=== PATIENT | female | born 1995 | race Caucasian/White ===

== ENCOUNTER 2019-02-13 16:24 | Emergency (ER) | payer MEDICAID ==
--- NOTE | 2019-02-13 17:06 | EDM.PDOC ---
ED HPI GENERAL MEDICAL PROBLEM - General Chief Complaint: Respiratory Problem Stated Complaint: CHEST DISCOMFORT Time Seen by Provider: 02/13/19 16:25 Source of Information: Reports: Patient History Limitations: Reports: No Limitations - History of Present Illness INITIAL COMMENTS - FREE TEXT/NARRATIVE: HISTORY AND PHYSICAL: History of present illness: Patient is a 23-year-old female presents to the ED today with concern of palpitations. Patient states she is approximately 15 weeks gestation. Patient states she's been having the palpitations for approximately 4-5 weeks but just started getting anxious about them today so came in to be evaluated. Patient states she has episodes of about 1-2 seconds where she feels her heart "fluttering" and gets a little bit lightheaded which resolves after a second. Patient was seen a few days ago by her COAT FITTER and states that she did not let her know about these symptoms at that time. Patient states she has a few episodes a day. Patient denies any abdominal pain or vaginal bleeding. Patient denies any other symptoms or concerns at this time. Patient denies fever, chills, chest pain, shortness of breath, or cough. Denies headache, neck stiff ness, change in vision, syncope, or near syncope. Denies nausea, vomiting, abdominal pain, diarrhea, constipation, or dysuria. Has not noted any blood in urine or stool. Patient has been eating and drinking appropriately. Review of systems: As per history of present illness and below otherwise all systems reviewed and negative. Past medical history: As per history of present illness and as reviewed below otherwise noncontributory. Surgical history: As per history of present illness and as reviewed below otherwise noncontributory. Social history: See social history for further information Family history: As per history of present illness and as reviewed below otherwise noncontributory. Physical exam: General: Patient is alert, oriented, and in no acute distress. Patient sitting comfortably on exam table. HEENT: Atraumatic, normocephalic, pupils equal and reactive bilaterally, negative for conjunctival pallor or scleral icterus, mucous membranes moist, TMs normal bilaterally, throat clear, neck supple, nontender, trachea midline. No drooling or trismus noted. No meningeal signs. No hot potato voice noted. Lungs: Clear to auscultation, breath sounds equal bilaterally, chest nontender. Heart: S1S2, regular rate and rhythm without overt murmur. No displaced PMI. Abdomen: Soft, nondistended, nontender. Negative for masses or hepatosplenomegaly. Negative for costovertebral tenderness. Pelvis: Stable nontender. Genitourinary: Deferred. Rectal: Deferred. Skin: Intact, warm, dry. No lesions or rashes noted. Extremities: Atraumatic, negative for cords or calf pain. Neurovascular unremarkable. Neuro: Awake, alert, oriented. Cranial nerves II through XII unremarkable. Cerebellum unremarkable. Motor and sensory unremarkable throughout. Exam nonfocal. Notes: FHT 152 at bedside. Discussed the importance for follow-up with her COAT FITTER Voices understanding and is agreeable to plan of care. Denies any further questions or concerns at this time. Diagnostics: EKG, CBC, CMP, UA, urine hCG, Troponin, TSH Discussed with patient risk, limitations, vs benefit of CXR, expresses understanding and declines imaging. Therapeutics: None Prescription: None Impression: Palpitations, unspecified Plan: 1. You can use Tylenol as directed for pain and discomfort. This is safe to use in . 2. Follow-up with your COAT FITTER as discussed and as scheduled. Return to the ED as needed and as discussed. Definitive disposition and diagnosis as appropriate pending reevaluation and review of above. - Related Data Allergies Allergy/AdvReac Type Severity Reaction Status Date / Time No Known Allergies Allergy Verified 02/13/19 16:42 Home Meds: Home Meds Pnv No.95/Ferrous Fum/Folic AC [ Multivitamin Tablet] 1 each PO DAILY [History] Sertraline [Zoloft] 25 mg PO DAILY 02/13/19 [History] Past Medical History - Past Health History Medical/Surgical History: Denies Medical/Surgical History - Infectious Disease History Infectious Disease History: Reports: Chicken Pox Social & Family History - Family History Family Medical History: Noncontributory - Tobacco Use Smoking Status *Q: Never Smoker - Caffeine Use Caffeine Use: Reports: Coffee - Recreational Drug Use Recreational Drug Use: No ED ROS GENERAL - Review of Systems Review Of Systems: ROS reveals no pertinent complaints other than HPI. ED EXAM, GENERAL - Physical Exam Exam: See Below (see dictation) Course - Vital Signs Last Recorded V/S: Last Vital Signs Temp 36.4 C 02/13/19 16:47 Pulse 86 02/13/19 17:50 Resp 16 02/13/19 16:47 BP 113/59 L 02/13/19 16:47 Pulse Ox 97 02/13/19 17:50 - Orders/Labs/Meds Orders: Active Orders 24 hr Category Date Time Status EKG Documentation Completion [RC] STAT Care 02/13/19 16:45 Active CULTURE URINE [RM] Stat Lab 02/13/19 17:05 Received Labs: Laboratory Tests 02/13/19 02/13/19 02/13/19 Range/Units 17:05 17:05 17:13 WBC 7.92 (4.0-11.0) K/uL RBC 3.66 L (4.30-5.90) M/uL Hgb 11.2 L (12.0-16.0) g/dL Hct 33.8 L (36.0-46.0) % MCV 92.3 (80.0-98.0) fL MCH 30.6 (27.0-32.0) pg MCHC 33.1 (31.0-37.0) g/dL RDW Std Deviation 45.1 (28.0-62.0) fl RDW Coeff of Keaton 13 (11.0-15.0) % Plt Count 194 (150-400) K/uL MPV 9.20 (7.40-12.00) fL Neut % (Auto) 65.0 (48.0-80.0) % Lymph % (Auto) 24.4 (16.0-40.0) % [place] % (Auto) 7.3 (0.0-15.0) % Eos % (Auto) 3.0 (0.0-7.0) % Baso % (Auto) 0.3 (0.0-1.5) % Neut # (Auto) 5.2 (1.4-5.7) K/uL Lymph # (Auto) 1.9 (0.6-2.4) K/uL [place] # (Auto) 0.6 (0.0-0.8) K/uL Eos # (Auto) 0.2 (0.0-0.7) K/uL Baso # (Auto) 0.0 (0.0-0.1) K/uL Nucleated RBC % 0.0 /100WBC Nucleated RBCs # 0 K/uL Sodium (136-145) mmol/L Potassium (3.5-5.1) mmol/L Chloride (98-107) mmol/L Carbon Dioxide (21.0-32.0) mmol/L BUN (7.0-18.0) mg/dL Creatinine (0.6-1.0) mg/dL Est Cr Clr Drug Dosing mL/min Estimated GFR (MDRD) ml/min Glucose (74-106) mg/dL Calcium (8.5-10.1) mg/dL Total Bilirubin (0.2-1.0) mg/dL AST (15-37) IU/L ALT (14-63) IU/L Alkaline Phosphatase (46-116) U/L Troponin I (0.000-0.056) ng/mL Total Protein (6.4-8.2) g/dL Albumin (3.4-5.0) g/dL Globulin (2.6-4.0) g/dL Albumin/Globulin Ratio (0.9-1.6) TSH 3rd Generation (0.36-3.74) uIU/mL Urine Color YELLOW Urine Appearance SLT CLOUDY Urine pH 6.0 (5.0-8.0) Ur Specific [place] 1.025 (1.001-1.035) Urine Protein NEGATIVE (NEGATIVE) mg/dL Urine Glucose (UA) NEGATIVE (NEGATIVE) mg/dL Urine Ketones NEGATIVE (NEGATIVE) mg/dL Urine Occult Blood NEGATIVE (NEGATIVE) Urine Nitrite NEGATIVE (NEGATIVE) Urine Bilirubin NEGATIVE (NEGATIVE) Urine Urobilinogen 0.2 (<2.0) EU/dL Ur Leukocyte Esterase TRACE H (NEGATIVE) Urine RBC 0-1 (0-2/HPF) Urine WBC 0-3 (0-5/HPF) Ur Epithelial Cells FEW (NONE-FEW) Urine Bacteria RARE (NEGATIVE) Urine HCG, Qual POSITIVE (NEGATIVE) 02/13/19 02/13/19 Range/Units 17:13 17:13 WBC (4.0-11.0) K/uL RBC (4.30-5.90) M/uL Hgb (12.0-16.0) g/dL Hct (36.0-46.0) % MCV (80.0-98.0) fL MCH (27.0-32.0) pg MCHC (31.0-37.0) g/dL RDW Std Deviation (28.0-62.0) fl RDW Coeff of Keaton (11.0-15.0) % Plt Count (150-400) K/uL MPV (7.40-12.00) fL Neut % (Auto) (48.0-80.0) % Lymph % (Auto) (16.0-40.0) % [place] % (Auto) (0.0-15.0) % Eos % (Auto) (0.0-7.0) % Baso % (Auto) (0.0-1.5) % Neut # (Auto) (1.4-5.7) K/uL Lymph # (Auto) (0.6-2.4) K/uL [place] # (Auto) (0.0-0.8) K/uL Eos # (Auto) (0.0-0.7) K/uL Baso # (Auto) (0.0-0.1) K/uL Nucleated RBC % /100WBC Nucleated RBCs # K/uL Sodium 138 (136-145) mmol/L Potassium 3.7 (3.5-5.1) mmol/L Chloride 106 (98-107) mmol/L Carbon Dioxide 23.6 (21.0-32.0) mmol/L BUN 6 L (7.0-18.0) mg/dL Creatinine 0.5 L (0.6-1.0) mg/dL Est Cr Clr Drug Dosing 167.26 mL/min Estimated GFR (MDRD) > 60.0 ml/min Glucose 72 L (74-106) mg/dL Calcium 8.7 (8.5-10.1) mg/dL Total Bilirubin 0.2 (0.2-1.0) mg/dL AST 15 (15-37) IU/L ALT 24 (14-63) IU/L Alkaline Phosphatase 39 L (46-116) U/L Troponin I < 0.050 (0.000-0.056) ng/mL Total Protein 6.3 L (6.4-8.2) g/dL Albumin 2.9 L (3.4-5.0) g/dL Globulin 3.4 (2.6-4.0) g/dL Albumin/Globulin Ratio 0.9 (0.9-1.6) TSH 3rd Generation 1.47 (0.36-3.74) uIU/mL Urine Color Urine Appearance Urine pH (5.0-8.0) Ur Specific [place] (1.001-1.035) Urine Protein (NEGATIVE) mg/dL Urine Glucose (UA) (NEGATIVE) mg/dL Urine Ketones (NEGATIVE) mg/dL Urine Occult Blood (NEGATIVE) Urine Nitrite (NEGATIVE) Urine Bilirubin (NEGATIVE) Urine Urobilinogen (<2.0) EU/dL Ur Leukocyte Esterase (NEGATIVE) Urine RBC (0-2/HPF) Urine WBC (0-5/HPF) Ur Epithelial Cells (NONE-FEW) Urine Bacteria (NEGATIVE) Urine HCG, Qual (NEGATIVE) Departure - Departure Time of Disposition: 18:03 Disposition: Home, Self-Care 01 Clinical Impression: Palpitations Qualifiers: Weeks of gestation: unspecified Qualified Code(s): Z34.90 - Encounter for supervision of normal , unspecified, unspecified trimester - Discharge Information Referrals: PCP,Unknown [Primary Care Provider] - Forms: ED Department Discharge Additional Instructions: The following information is given to patients seen in the emergency department who are being discharged to home. This information is to outline your options for follow-up care. We provide all patients seen in our emergency department with a follow-up referral. The need for follow-up, as well as the timing and circumstances, are variable depending upon the specifics of your emergency department visit. If you don't have a primary care physician on staff, we will provide you with a referral. We always advise you to contact your personal physician following an emergency department visit to inform them of the circumstance of the visit and for follow-up with them and/or the need for any referrals to a consulting specialist. The emergency department will also refer you to a specialist when appropriate. This referral assures that you have the opportunity for follow-up care with a specialist. All of these measure are taken in an effort to provide you with optimal care, which includes your follow-up. Under all circumstances we always encourage you to contact your private physician who remains a resource for coordinating your care. When calling for follow-up care, please make the office aware that this follow-up is from your recent emergency room visit. If for any reason you are refused follow-up, please contact the [facility] Emergency Department at and asked to speak to the emergency department charge nurse. JOVANA [facility] [address] [place] [address] [facility] [address] [place] [address] [facility] [address] [place] [address] 1. You can use Tylenol as directed for pain and discomfort. This is safe to use in . 2. Follow-up with your COAT FITTER as discussed and as scheduled. Return to the ED as needed and as discussed. - My Orders Last 24 Hours: My Active Orders 02/13/19 16:45 EKG Documentation Completion [RC] STAT 02/13/19 17:05 CULTURE URINE [RM] Stat - Assessment/Plan Last 24 Hours: My Active Orders 02/13/19 16:45 EKG Documentation Completion [RC] STAT 02/13/19 17:05 CULTURE URINE [RM] Stat
[2019-02-13 17:44] LABS: CHLORIDE,CL 106 mmol/L (98-107); SODIUM,NA 138 mmol/L (136-145)
== END 2019-02-13 18:20 | disposition home or self-care (01) ==
LOC: MW.ED 16:24
DX: O99.89 Other specified diseases and conditions complicating pregnancy, childbirth and the puerperium (principal); R00.2 Palpitations; Z3A.15 15 weeks gestation of pregnancy; Z79.899 Other long term (current) drug therapy
CPT/HCPCS: 36415; 80053; 81001; 81025; 84443; 84484; 85025; 87086; 93005; 99283; 99285-25

== ENCOUNTER 2019-08-04 05:11 | Inpatient (IN) | payer MEDICAID ==
[2019-08-04] MEDS ORDERED: Sodium Chloride 0.9% 2.5 ML Syringe FLUSH PRN (07:42)
[2019-08-04] MEDS ORDERED: Methylergonovine 0.2 MG/1 ML Amp IM PRN (07:42)
[2019-08-04] MEDS ORDERED: Misoprostol 200 MCG Tab PO PRN (07:42)
[2019-08-04] MEDS ORDERED: Carboprost Tromethamine 250 MCG/1 ML Amp IM PRN (07:42)
[2019-08-04] MEDS ORDERED: Water For Irrigation,Sterile 1,000 ML Container IRR PRN (07:42)
[2019-08-04] MEDS ORDERED: Lidocaine 1% 50 ML MDV INJECT PRN (07:42)
[2019-08-04] MEDS ORDERED: Sodium Chloride 0.9% 10 ML SDV IV PRN (07:42)
[2019-08-04] MEDS ORDERED: Sodium Chloride 0.9% 10 ML Syringe FLUSH PRN (07:42)
[2019-08-04] MEDS ORDERED: Tranexamic Acid 1,000 MG in Sodium Chloride 0.9% 100 ML IV PRN (07:42)
[2019-08-04] MEDS ORDERED: Ondansetron 4 MG/2 ML SDV IVPUSH PRN (07:42)
[2019-08-04] MEDS ORDERED: Butorphanol 1 MG/ML SDV IVPUSH PRN (07:42)
[2019-08-04] MEDS ORDERED: Nalbuphine 10 MG/1 ML Vial IVPUSH PRN (07:42)
[2019-08-04] MEDS ORDERED: Oxytocin/Lactated Ringers 30 UNIT/500 ML BAG IV SCH (07:45)
[2019-08-04] MEDS ORDERED: Oxytocin/0.9 % Sodium Chloride 30 UNIT/500 ML BAG IV SCH ×2 (07:45→15:15)
[2019-08-04] MEDS ORDERED: Lactated Ringers 1,000 ML IV SCH (07:45)
[2019-08-04] MEDS ORDERED: Sertraline 25 MG Tab PO SCH (09:00)
[2019-08-04] MEDS ORDERED: Bupivicaine/fentaNYL/NS 250 ML ONE (13:33)
--- NOTE | 2019-08-04 14:17 | PCM.PREANE ---
Preanesthetic Assessment - Anesthesia/Transfusion/Family Hx Anesthesia History: No Prior Anesthesia Family History of Anesthesia Reaction: No Transfusion History: No Prior Transfusion(s) - Review of Systems General: No Symptoms Pulmonary: No Symptoms Cardiovascular: No Symptoms Gastrointestinal: No Symptoms Neurological: No Symptoms Other: Reports: None - Physical Assessment NPO Status Date: 08/04/19 NPO Status Time: 09:00 Height: 1.7 m Weight: 91.626 kg ASA Class: 2 Mental Status: Alert & Oriented x3 Airway Class: Mallampati = 1 Dentition: Reports: Normal Dentition Thyro-Mental Finger Breadths: 3 Mouth Opening Finger Breadths: 3 ROM/Head Extension: Full Lungs: Clear to Auscultation Cardiovascular: Regular Rate - Lab Values: Laboratory Last Values WBC 10.39 K/uL (4.0-11.0) 08/04/19 08:22 RBC 4.00 M/uL (4.30-5.90) L 08/04/19 08:22 Hgb 12.4 g/dL (12.0-16.0) 08/04/19 08:22 Hct 36.7 % (36.0-46.0) 08/04/19 08:22 MCV 91.8 fL (80.0-98.0) 08/04/19 08:22 MCH 31.0 pg (27.0-32.0) 08/04/19 08:22 MCHC 33.8 g/dL (31.0-37.0) 08/04/19 08:22 RDW Std Deviation 43.9 fl (28.0-62.0) 08/04/19 08:22 RDW Coeff of Keaton 13 % (11.0-15.0) 08/04/19 08:22 Plt Count 184 K/uL (150-400) 08/04/19 08:22 MPV 9.90 fL (7.40-12.00) 08/04/19 08:22 Nucleated RBC % 0.0 /100WBC 08/04/19 08:22 Nucleated RBCs # 0 K/uL 08/04/19 08:22 Blood Type A POSITIVE 08/04/19 08:22 Antibody Screen NEGATIVE 08/04/19 08:22 - Allergies Allergies/Adverse Reactions: Allergies Allergy/AdvReac Type Severity Reaction Status Date / Time No Known Allergies Allergy Verified 06/19/19 11:19 - Acknowledgements Anesthesia Type Planned: Epidural Pt an Appropriate Candidate for the Planned Anesthesia: Yes Alternatives and Risks of Anesthesia Discussed w Pt/Guardian: Yes Pt/Guardian Understands and Agrees with Anesthesia Plan: Yes Additional Comments: 40wks came in labor AROM PreAnesthesia Questionnaire - Past Health History Medical/Surgical History: Denies Medical/Surgical History Respiratory History: Reports: Asthma DANCE HALL HOSTESS History: Reports: Ectopic Psychiatric History: Reports: Depression Dermatologic History: Reports: Cellulitis - Infectious Disease History Infectious Disease History: Reports: Chicken Pox - SUBSTANCE USE Tobacco Use Within Last Twelve Months: No Recreational Drug Use History: Yes Recreational Drug Type: Reports: Methamphetamine - HOME MEDS Home Medications: Home Meds Pnv No.95/Ferrous Fum/Folic AC [ Multivitamin Tablet] 1 each PO DAILY [History] Sertraline [Zoloft] 25 mg PO DAILY 02/13/19 [History] - CURRENT (IN HOUSE) MEDS Current Meds: Current Medications Butorphanol Tartrate (Stadol) 1 mg IVPUSH Q1H PRN; Protocol PRN Reason: Pain Last Admin: 08/04/19 11:32 Dose: 1 mg Carboprost Tromethamine (Hemabate Ds) 250 mcg IM ASDIRECTED PRN PRN Reason: Post Hemorrhage Tranexamic Acid 1,000 mg/ (Sodium Chloride) 110 mls @ 660 mls/hr IV ONETIME PRN PRN Reason: Bleeding Lactated Ringer's (Ringers, Lactated) 1,000 mls @ 150 mls/hr IV ASDIRECTED LIZET Last Infusion: 08/04/19 13:25 Dose: 999 mls/hr Oxytocin/Sodium Chloride (Oxytocin 30 Unit/500 Ml-Ns) 30 unit in 500 mls @ 999 mls/hr IV TITRATE LIZET Oxytocin/Lactated Ringer's (Pitocin In Lr 30 Units/500 Ml) 30 unit in 500 mls @ 2 mls/hr IV TITRATE LIZET; Protocol Stop: 08/05/19 07:44 Lidocaine HCl (Xylocaine 1%) 50 ml INJECT ONETIME PRN PRN Reason: Laceration repair Methylergonovine Maleate (Methergine) 0.2 mg IM ASDIRECTED PRN PRN Reason: Post Hemorrhage Misoprostol (Cytotec) 200 mcg PO ONETIME PRN PRN Reason: Post Hemorrhage Nalbuphine HCl (Nubain) 10 mg IVPUSH Q1H PRN PRN Reason: Pain (severe 7-10) Ondansetron HCl (Zofran) 4 mg IVPUSH Q4H PRN PRN Reason: Nausea/Vomiting Sertraline HCl (Zoloft) 25 mg PO DAILY LIZET Sodium Chloride (Saline Flush) 10 ml FLUSH ASDIRECTED PRN PRN Reason: Keep Vein Open Sodium Chloride (Saline Flush) 2.5 ml FLUSH ASDIRECTED PRN PRN Reason: Keep Vein Open Sodium Chloride (Normal Saline) 10 ml IV ASDIRECTED PRN PRN Reason: IV Use Sterile Water (Sterile Water For Irrigation) 1,000 ml IRR ASDIRECTED PRN PRN Reason: delivery Discontinued Medications Fentanyl/Bupivacaine HCl (Fentanyl/Bupivacaine/Ns 2 Mcg-0.125% 250 Ml) Confirm Administered Dose 250 mls @ as directed .ROUTE .[facility] ONE Stop: 08/04/19 13:34
[2019-08-04] MEDS ORDERED: Ibuprofen 800 MG Tab PO PRN (20:48)
[2019-08-04] MEDS ORDERED: Benzocaine/Menthol 20%-0.5% Spray 78 GM Cannister TOP PRN (20:48)
[2019-08-04] MEDS ORDERED: Witch Hazel Medicated Pads 40/Jar TOP PRN (20:48)
[2019-08-04] MEDS ORDERED: Acetaminophen 500 MG Tab PO PRN ×2 (20:48)
[2019-08-04] MEDS ORDERED: Ibuprofen 400 MG Tab PO PRN (20:48)
[2019-08-04] MEDS ORDERED: Lanolin 100% Cream 7 GM Tube TOP PRN (20:48)
[2019-08-04] MEDS ORDERED: Docusate Sodium 100 MG Cap PO PRN (20:48)
[2019-08-04] MEDS ORDERED: Bisacodyl 10 MG Supp RECTAL PRN (20:48)
--- NOTE | 2019-08-05 01:20 | OR ---
SURGEON: Lorenzo Santizo MD DATE OF PROCEDURE: 08/04/2019 INDICATION FOR PROCEDURE: A 24-year-old G2, P0-0-1-0 female at 40 weeks and 0 days, presented in spontaneous labor. The patient progressed from 3 cm to 6 cm on her own, was augmented with AROM, which had thick meconium. She was started on Pitocin for augmentation. She received epidural for anesthesia. She progressed to fully dilated and +1 station. The baby had category 1 tracing. Near the end of her labor course, the heart rate started to be elevated to 160 to 170 baseline, but she did not have other signs of chorioamnionitis. She progressed to push with contractions. PREOPERATIVE DIAGNOSES: 1. Mathis intrauterine at 40 weeks and 0 days. 2. Active 2nd stage of labor. 3. tachycardia. POSTOPERATIVE DIAGNOSES: 1. Mathis intrauterine at 40 weeks and 0 days. 2. Active 2nd stage of labor. 3. tachycardia. PROCEDURE: Normal spontaneous vaginal delivery. ANESTHESIOLOGIST: Dr. Pardeep Gagnon. ANESTHESIA: Epidural. FINDINGS: A viable female , scores of 8 and 9, weight of 9 pounds. The baby had a body cord x1. Thick meconium was noted. DESCRIPTION OF THE PROCEDURE: The patient pushed with contractions for approximately 1 hour. The head delivered in the occiput anterior position with restituted ROT. The anterior shoulder delivered easily followed by posterior shoulder. A tight body cord was noted. The body was delivered with the cord. The cord was then reduced after delivery. The baby was placed on maternal chest and evaluated by awaiting nursery staff. Baby was pink, crying, and moving all extremities immediately after delivery. The umbilical cord was clamped and cut after 60 seconds and no longer pulsating. Umbilical cord gases were obtained. The placenta was removed with gentle traction of the umbilical cord. No lacerations were noted. Fundal massage was performed and the uterus was firm and below the umbilicus. The bleeding was minimal. The patient was cleaned. She tolerated the procedure well, was given care instructions. ALISON / PILAR /[id number] JERMAINE
--- NOTE | 2019-08-05 07:05 | PCM48HPAN ---
Post Anesthesia Note - EVALUATION WITHIN 48HRS OF ANESTHETIC Vital Signs in Normal Range: Yes Patient Participated in Evaluation: Yes Respiratory Function Stable: Yes Airway Patent: Yes Cardiovascular Function Stable: Yes Hydration Status Stable: Yes Pain Control Satisfactory: Yes Nausea and Vomiting Control Satisfactory: Yes Mental Status Recovered: Yes Vital Signs: Last Vital Signs Temp 37.1 C 08/05/19 02:56 Pulse 78 08/05/19 02:56 Resp 15 08/05/19 02:56 BP 124/58 L 08/05/19 02:56 Pulse Ox 98 08/05/19 02:56
--- NOTE | 2019-08-05 11:07 | PCM.PNPP ---
- General Info Date of Service: 08/05/19 Functional Status: Reports: Pain Controlled, Tolerating Diet, Ambulating, Urinating - Review of Systems General: Reports: No Symptoms HEENT: Reports: No Symptoms Pulmonary: Reports: No Symptoms Cardiovascular: Reports: No Symptoms Gastrointestinal: Reports: No Symptoms Genitourinary: Reports: No Symptoms Musculoskeletal: Reports: No Symptoms Skin: Reports: No Symptoms Neurological: Reports: No Symptoms Psychiatric: Reports: No Symptoms - Patient Data Vital Signs - Most Recent: Last Vital Signs Temp 36.1 C 08/05/19 07:45 Pulse 97 08/05/19 07:45 Resp 16 08/05/19 07:45 BP 114/64 08/05/19 07:45 Pulse Ox 98 08/05/19 07:45 Weight - Most Recent: 202 lb Lab Results - Last 24 Hours: Laboratory Results - last 24 hr 08/05/19 Range/Units 06:00 Hgb 13.1 (12.0-16.0) g/dL Hct 38.2 (36.0-46.0) % Med Orders - Current: Current Medications Acetaminophen (Tylenol Extra Strength) 500 mg PO Q4H PRN PRN Reason: Pain Acetaminophen (Tylenol Extra Strength) 1,000 mg PO Q4H PRN PRN Reason: Pain Benzocaine/Menthol (Dermoplast Pain Relief 20%-0.5% [place]) 78 gm TOP ASDIRECTED PRN PRN Reason: Perineal Comfort Measure Bisacodyl (Dulcolax) 10 mg RECTAL ONETIME PRN PRN Reason: Constipation Butorphanol Tartrate (Stadol) 1 mg IVPUSH Q1H PRN; Protocol PRN Reason: Pain Last Admin: 08/04/19 11:32 Dose: 1 mg Carboprost Tromethamine (Hemabate Ds) 250 mcg IM ASDIRECTED PRN PRN Reason: Post Hemorrhage Docusate Sodium (Colace) 100 mg PO BID PRN PRN Reason: Constipation Emollient Ointment (Lansinoh Hpa) 0 gm TOP ASDIRECTED PRN PRN Reason: Sore Nipples Tranexamic Acid 1,000 mg/ (Sodium Chloride) 110 mls @ 660 mls/hr IV ONETIME PRN PRN Reason: Bleeding Lactated Ringer's (Ringers, Lactated) 1,000 mls @ 150 mls/hr IV ASDIRECTED LIZET Last Infusion: 08/04/19 13:25 Dose: 999 mls/hr Oxytocin/Sodium Chloride (Oxytocin 30 Unit/500 Ml-Ns) 30 unit in 500 mls @ 999 mls/hr IV TITRATE LIZET Oxytocin/Sodium Chloride (Oxytocin 30 Unit/500 Ml-Ns) 30 unit in 500 mls @ 2 mls/hr IV TITRATE LIZET; Protocol Last Infusion: 08/04/19 19:55 Dose: 999 munits/min, 999 mls/hr Ibuprofen (Motrin) 400 mg PO Q4H PRN PRN Reason: Pain Ibuprofen (Motrin) 800 mg PO Q6H PRN PRN Reason: Pain Lidocaine HCl (Xylocaine 1%) 50 ml INJECT ONETIME PRN PRN Reason: Laceration repair Methylergonovine Maleate (Methergine) 0.2 mg IM ASDIRECTED PRN PRN Reason: Post Hemorrhage Misoprostol (Cytotec) 200 mcg PO ONETIME PRN PRN Reason: Post Hemorrhage Nalbuphine HCl (Nubain) 10 mg IVPUSH Q1H PRN PRN Reason: Pain (severe 7-10) Ondansetron HCl (Zofran) 4 mg IVPUSH Q4H PRN PRN Reason: Nausea/Vomiting Sertraline HCl (Zoloft) 25 mg PO DAILY LIZET Sodium Chloride (Saline Flush) 10 ml FLUSH ASDIRECTED PRN PRN Reason: Keep Vein Open Sodium Chloride (Saline Flush) 2.5 ml FLUSH ASDIRECTED PRN PRN Reason: Keep Vein Open Sodium Chloride (Normal Saline) 10 ml IV ASDIRECTED PRN PRN Reason: IV Use Sterile Water (Sterile Water For Irrigation) 1,000 ml IRR ASDIRECTED PRN PRN Reason: delivery Witch [place] (Tucks) 1 pad TOP ASDIRECTED PRN PRN Reason: comfort care Discontinued Medications Oxytocin/Lactated Ringer's (Pitocin In Lr 30 Units/500 Ml) 30 unit in 500 mls @ 2 mls/hr IV TITRATE LIZET; Protocol Stop: 08/05/19 07:44 Fentanyl/Bupivacaine HCl (Fentanyl/Bupivacaine/Ns 2 Mcg-0.125% 250 Ml) Confirm Administered Dose 250 mls @ as directed .ROUTE .[facility] ONE Stop: 02/07/20 13:34 - Interaction Disposition, : [place] at Bedside Infant Interaction: Holding Infant Feeding: Breastfed Infant; Nursed Well Support Person: Significant Other - Recovery Exam Fundal Tone: Firm Fundal Level: 1 Fingerbreadths Below Umbilicus Fundal Placement: Midline Lochia Amount: Scant, Small Lochia Color: Rubra/Red Perineum Description: Intact, Minimal Bruising/Swelling Bladder Status: Voiding Urinary Elimination: Voided - Exam General: Alert, Oriented, Cooperative HEENT: Pupils Equal, Pupils Reactive, EOMI Neck: Supple, Trachea Midline, No JVD Lungs: Normal Respiratory Effort GI/Abdominal Exam: Soft, Non-Tender, No Organomegaly, No Distention Extremities: Normal Inspection, Normal Range of Motion, Non-Tender, No Pedal Edema Skin: Warm, Dry, Intact Wound/Incisions: Healing Well Neurological: No New Focal Deficit Psy/Mental Status: Alert, Normal Affect, Normal Mood - Problem List Review Problem List Initiated/Reviewed/Updated: Yes - My Orders Last 24 Hours: My Active Orders 08/04/19 15:15 Oxytocin/0.9 % Sodium Chloride [Oxytocin 30 Unit/500 ML-NS] 30 unit in 500 ml IV TITRATE 08/04/19 20:48 Patient Status [ADT] Routine May Shower [RC] ASDIRECTED Up ad Liliana [RC] ASDIRECTED Vital Signs [RC] PER UNIT ROUTINE Acetaminophen [Tylenol Extra Strength] 1,000 mg PO Q4H PRN Acetaminophen [Tylenol Extra Strength] 500 mg PO Q4H PRN Benzocaine/Menthol [Dermoplast Pain Relief 20%-0.5% [place]] 78 gm TOP ASDIRECTED PRN Docusate Sodium [Colace] 100 mg PO BID PRN Ibuprofen [Motrin] 400 mg PO Q4H PRN Ibuprofen [Motrin] 800 mg PO Q6H PRN Lanolin [Lansinoh HPA] See Dose Instructions TOP ASDIRECTED PRN [place] [Tucks] 1 pad TOP ASDIRECTED PRN bisacodyL [Dulcolax] 10 mg RECTAL ONETIME PRN Assess Lochia [WOMSER] Per Unit Routine Assess Uterine Involution [WOMSER] Per Unit Routine Breast Pump [WOMSER] Per Unit Routine Peripheral IV Discontinue [OM.PC] Routine 08/04/19 20:49 Cooling Warming Measures [RC] ASDIRECTED Ice Therapy [OM.PC] Per Unit Routine Perineal Care [OM.PC] Per Unit Routine Sitz Bath [OM.PC] Per Unit Routine 08/05/19 10:59 Ready for Discharge [RC] PER UNIT ROUTINE - Assessment Assessment:: 24yo PPD1 s/p at 40w0d. Stable and recovering well. - Plan Plan:: - VSS - Hgb 13.1, minimal bleeding, no s/s of anemia - well, advised to continue PNV - stable for discharge home today, given precautions
== END 2019-08-05 21:43 | disposition home or self-care (01) | DRG 807 ==
LOC: MW.OBCHECK 05:11 → MW.OB 05:12 → MW.OBCHECK 07:43 → MW.OB 07:43 → OBSVTOIN 19:54 → MW.OB 22:52
PROVIDERS: ADMIT Obstetrics & Gynecology; ATTEND Obstetrics & Gynecology
PROC: 10E0XZZ Delivery of Products of Conception, External Approach (ICD-10-PCS; principal; 2019-08-04)
PROC: 10907ZC Drainage of Amniotic Fluid, Therapeutic from Products of Conception, Via Natural or Artificial Opening (ICD-10-PCS; 2019-08-04)
PROC: 3E0R3BZ Introduction of Anesthetic Agent into Spinal Canal, Percutaneous Approach (ICD-10-PCS; 2019-08-04)
DX: O77.0 Labor and delivery complicated by meconium in amniotic fluid (principal); Z37.0 Single live birth; O99.344 Other mental disorders complicating childbirth; F32.9 Major depressive disorder, single episode, unspecified; O76 Abnormality in fetal heart rate and rhythm complicating labor and delivery; Z3A.40 40 weeks gestation of pregnancy
CPT/HCPCS: 01967; 36415; 51702; 59025; 59409; 85014; 85018; 85027; 86592; 86850; 86900; 86901; A9270-GY; J0595; J2590; J3010; J7120